=== PATIENT | male | born 1940 | race Caucasian/White ===

== ENCOUNTER → 2016-05-29 | Outpatient (CLI) | payer MEDICARE, OTHER | END | disposition home or self-care (01) | LOC: Rad HDHVI 07:56 | PROVIDERS: ATTEND Internal Medicine Cardiovascular Disease | DX: I25.5 Ischemic cardiomyopathy (principal); I35.0 Nonrheumatic aortic (valve) stenosis; I10 Essential (primary) hypertension; E78.00 Pure hypercholesterolemia, unspecified; J06.9 Acute upper respiratory infection, unspecified | CPT/HCPCS: 93306 ==

== ENCOUNTER → 2016-06-01 | Outpatient (CLI) | payer MEDICARE, OTHER ==
[~2016-06-01] VITALS: Ht 177.8 cm; Wt 67.1 kg
== END ==
LOC: Rad HDHVI 09:56
PROVIDERS: ATTEND Internal Medicine Cardiovascular Disease
DX: I10 Essential (primary) hypertension (principal); I25.2 Old myocardial infarction; E78.00 Pure hypercholesterolemia, unspecified; I25.10 Atherosclerotic heart disease of native coronary artery without angina pectoris; J06.9 Acute upper respiratory infection, unspecified; Z82.49 Family history of ischemic heart disease and other diseases of the circulatory system
CPT/HCPCS: 78452; 93017; 96374; A9500

== ENCOUNTER → 2016-10-15 | Outpatient (CLI) | payer MEDICARE, OTHER ==
[~2016-10-15] VITALS: Ht 177.8 cm; Wt 64.0 kg
[~2016-10-15] MED LIST: ASPI81CH49 PO; SIMV-13 PO
[2016-10-15 11:05] VITALS: BP 123/68
[2016-10-15 11:25] VITALS: BP 126/70
== END | disposition home or self-care (01) ==
LOC: LAB 11:33
PROVIDERS: ATTEND Internal Medicine Cardiovascular Disease
DX: Z01.818 Encounter for other preprocedural examination (principal); I71.4 Abdominal aortic aneurysm, without rupture
CPT/HCPCS: 93005; G0463

== ENCOUNTER → 2017-02-06 | Outpatient (CLI) | payer MEDICARE, OTHER ==
[~2017-02-06] MED LIST changes: +IOHEXOL 350 MG/ML 100ML IJ ONE; +READI-CAT 2 (BARIUM SULF)(VANILLA SMOOTHIE) 450ML ONE
[2017-02-06 15:00] VITALS: BP 119/79
[2017-02-06 15:45] VITALS: BP 134/72
== END | disposition home or self-care (01) ==
LOC: Rad HDHVI 14:56
PROVIDERS: ATTEND Internal Medicine Cardiovascular Disease
DX: J43.9 Emphysema, unspecified (principal); M48.54XA Collapsed vertebra, not elsewhere classified, thoracic region, initial encounter for fracture; M48.56XA Collapsed vertebra, not elsewhere classified, lumbar region, initial encounter for fracture; N40.0 Benign prostatic hyperplasia without lower urinary tract symptoms; N20.0 Calculus of kidney; Z85.46 Personal history of malignant neoplasm of prostate; X58.XXXA Exposure to other specified factors, initial encounter; Y93.89 Activity, other specified; Y92.89 Other specified places as the place of occurrence of the external cause; Y99.8 Other external cause status
CPT/HCPCS: 71260; 74177; 82565; 96374; Q9967

== ENCOUNTER → 2017-11-25 | Outpatient (CLI) | payer MEDICARE, OTHER ==
[~2017-11-25] MED LIST changes: -READI-CAT 2 (BARIUM SULF)(VANILLA SMOOTHIE) 450ML ONE
[2017-11-25 11:00] VITALS: BP 116/70
[2017-11-25 11:40] VITALS: BP 124/70
== END | disposition home or self-care (01) ==
LOC: Rad HDHVI 10:55
PROVIDERS: ATTEND Internal Medicine Cardiovascular Disease
DX: C61 Malignant neoplasm of prostate (principal); I10 Essential (primary) hypertension; E11.9 Type 2 diabetes mellitus without complications; M79.7 Fibromyalgia; D64.9 Anemia, unspecified; R53.83 Other fatigue; R52 Pain, unspecified
CPT/HCPCS: 74177; 82565; G0463; Q9967

== ENCOUNTER → 2017-12-02 | Outpatient (CLI) | payer MEDICARE, OTHER ==
[~2017-12-02] MED LIST changes: -IOHEXOL 350 MG/ML 100ML IJ ONE
== END | disposition home or self-care (01) ==
LOC: Rad HDHVI 12:52
PROVIDERS: ATTEND Internal Medicine Cardiovascular Disease
DX: I20.0 Unstable angina (principal)
CPT/HCPCS: 93306

== ENCOUNTER → 2017-12-03 | Outpatient (CLI) | payer MEDICARE, OTHER ==
[~2017-12-03] VITALS: Ht 177.8 cm; Wt 61.7 kg
[2017-12-03 12:18] LABS: Urine Blood Negative /uL (Negative); Urine Specific Gravity 1.015 (1.001-1.035)
[2017-12-03 12:21] LABS: Basophils # (auto) 0 uL; Basophils % (auto) 0.6 % (0.0-2.0); Eosinophils # (auto) 0.1 uL; Hematocrit 46.8 % (41.0-53.0); Hemoglobin 15.6 g/dL (13.5-17.5); Lymphocytes # (auto) 1.2 uL; Lymphocytes % (auto) 22.9 % (10.0-50.0); Mean Corpuscular Hgb Conc. 33.3 g/dL (32.0-36.0); Mean Corpuscular Volume 96.2 fL (80.0-100.0); Monocytes # (auto) 0.4 uL; Monocytes % (auto) 6.9 % (0.0-12.0); Neutrophils # (auto) 3.6 uL; Neutrophils % (auto) 67.6 % (37.0-80.0); Nucleated Red Blood Cells % 0.1 %; Platelet Count (auto) 202 10^3/uL (140-450); Red Blood Cells 4.86 10^6/uL (4.5-5.90); White Blood Cell 5.4 10^3/uL (4.4-10.8)
[2017-12-03 12:36] LABS: Free T4 (Free Thyroxine) 1.12 ng/dL (0.89-1.76); Prostate Specific Antigen 0.95 ng/mL (0.0-4.0)
[2017-12-03 12:46] LABS: Albumin 3.7 g/dL (3.4-5.0); BUN/Creatinine Ratio 20.9; Bilirubin, Total 0.8 mg/dL (0.2-1.0); Calcium 8.9 mg/dL (8.5-10.1); Potassium 4.4 mmol/L (3.5-5.1); Total Protein 7.8 g/dL (6.4-8.2)
== END | disposition home or self-care (01) ==
LOC: Rad HDHVI 08:00
PROVIDERS: ATTEND Internal Medicine Cardiovascular Disease
DX: Z00.01 Encounter for general adult medical examination with abnormal findings (principal); E03.9 Hypothyroidism, unspecified; E55.9 Vitamin D deficiency, unspecified; E11.9 Type 2 diabetes mellitus without complications; C61 Malignant neoplasm of prostate; D51.9 Vitamin B12 deficiency anemia, unspecified; N39.0 Urinary tract infection, site not specified; I20.0 Unstable angina; I71.4 Abdominal aortic aneurysm, without rupture; E78.2 Mixed hyperlipidemia; R64 Cachexia
CPT/HCPCS: 36415; 78452; 80053; 80061; 81003; 82306; 82607; 83036; 84153; 84403; 84439; 84443; 85025; 93017; 96374; A9500

== ENCOUNTER → 2018-03-26 | Outpatient (CLI) | payer MEDICARE, OTHER | END | disposition home or self-care (01) | LOC: Rad HDHVI 10:14 | PROVIDERS: ATTEND Internal Medicine Cardiovascular Disease | DX: J40 Bronchitis, not specified as acute or chronic (principal) | CPT/HCPCS: 71046 ==

== ENCOUNTER → 2018-07-04 | Outpatient (CLI) | payer MEDICARE, OTHER ==
[~2018-07-04] MED LIST changes: +IOHEXOL 350 MG/ML 100ML IJ ONE; +READI-CAT 2 (BARIUM SULF)(VANILLA SMOOTHIE) 450ML ONE
[2018-07-04 08:17] VITALS: BP 135/75
--- NOTE | 2018-07-04 08:20 | NUR ---
IV insertion IV access obtained, via clean sterile technique by inserting 20 gauge catheter at LAC after 1 attempt(s). IV secured properly. No trauma to site. Patient tolerated procedure well.
--- NOTE | 2018-07-04 08:30 | NUR ---
LABS DRAWN, CREAT SENT TO LAB FOR STAT RESULTS
--- NOTE | 2018-07-04 09:30 | NUR ---
PT. TO AND FROM CT. TOLERATED PROCEDURE WELL, WITH NO C/O.
[2018-07-04 09:45] VITALS: BP 127/64
--- NOTE | 2018-07-04 09:45 | NUR ---
IV removal IV DC'd with sterile technique, catheter fully intact. Pressure dressing applied to site. Patient tolerated procedure well. Discharged with aftercare instructions per MD. NOTE: PT. INSTRUCTED TO INCREASE WATER INTAKE FOR NEXT 24 HRS.
[2018-07-04 12:19] LABS: Basophils # (auto) 0.1 uL; Basophils % (auto) 1.7 % (0.0-2.0); Eosinophils # (auto) 0.1 uL; Eosinophils % (auto) 1.7 % (0.0-7.0); Hematocrit 47.6 % (41.0-53.0); Hemoglobin 15.7 g/dL (13.5-17.5); Lymphocytes % (auto) 16.9 % (10.0-50.0); Mean Corpuscular Hemoglobin 31.7 pg (28.0-32.0); Mean Corpuscular Hgb Conc. 32.9 g/dL (32.0-36.0); Mean Corpuscular Volume 96.3 fL (80.0-100.0); Monocytes # (auto) 0.5 uL; Monocytes % (auto) 8.2 % (0.0-12.0); Neutrophils # (auto) 4.1 uL; Neutrophils % (auto) 71.5 % (37.0-80.0); Nucleated Red Blood Cells % 0.2 %; Platelet Count (auto) 178 10^3/uL (140-450); Red Blood Cells 4.94 10^6/uL (4.5-5.90); Red Cell Distribution Width 13.2 % (11.8-14.3); White Blood Cell 5.7 10^3/uL (4.4-10.8)
[2018-07-04 12:30] LABS: BUN/Creatinine Ratio 22.5; Calcium 8.8 mg/dL (8.5-10.1); Potassium 3.8 mmol/L (3.5-5.1)
[2018-07-04 15:49] LABS: Urine Blood Negative /uL (Negative); Urine Specific Gravity 1.018 (1.001-1.035)
[2018-07-07 14:11] LABS: Prostate Specific Antigen 0.58 ng/mL (0.0-4.0)
== END | disposition home or self-care (01) ==
LOC: Rad HDHVI 08:00
PROVIDERS: ATTEND Internal Medicine Cardiovascular Disease
DX: N39.0 Urinary tract infection, site not specified (principal); R94.4 Abnormal results of kidney function studies; R63.4 Abnormal weight loss; N20.0 Calculus of kidney; I71.4 Abdominal aortic aneurysm, without rupture; M85.88 Other specified disorders of bone density and structure, other site; J43.9 Emphysema, unspecified; C61 Malignant neoplasm of prostate; E03.9 Hypothyroidism, unspecified; E55.9 Vitamin D deficiency, unspecified; E29.1 Testicular hypofunction; E11.9 Type 2 diabetes mellitus without complications; D51.9 Vitamin B12 deficiency anemia, unspecified; Z79.899 Other long term (current) drug therapy
CPT/HCPCS: 36415; 74177; 80048; 80061; 81003; 82306; 82565; 82607; 83036; 84153; 84403; 84443; 85025; G0463; Q9967

== ENCOUNTER → 2018-08-05 | Outpatient (CLI) | payer MEDICARE, OTHER ==
[~2018-08-05] MED LIST changes: -READI-CAT 2 (BARIUM SULF)(VANILLA SMOOTHIE) 450ML ONE
[2018-08-05 08:40] VITALS: BP_SYST 111; BP_SYST 125; BP_DIAS 61; BP_DIAS 68
--- NOTE | 2018-08-05 10:43 | NUR ---
IN FOR CT HEAD WITH IV CONTRAST TO R/O CVA. IV insertion IV access obtained, via clean sterile technique by inserting 20 gauge catheter at [RIGHT AC after [2] attempt(s). IV secured properly. No trauma to site. Patient tolerated procedure well. LABS DRAWN AND SENT FOR STAT RESULT AT 0853. CREATININE RETURNED AT 0.[address] SCAN COMPLETED AND TOLERATED WELL. IV SITE DCD POST CT SCAN AND SITE BENIGN. DISCHARGED TO SELF CARE WITHOUT DISTRESS AND WITHOUT DISCOMFORT.
== END | disposition home or self-care (01) ==
LOC: Rad HDHVI 08:34
PROVIDERS: ATTEND Internal Medicine Cardiovascular Disease
DX: I63.9 Cerebral infarction, unspecified (principal); E03.9 Hypothyroidism, unspecified; R94.4 Abnormal results of kidney function studies; R42 Dizziness and giddiness; G31.9 Degenerative disease of nervous system, unspecified
CPT/HCPCS: 36415; 70470; 82565; 84439; 84443; G0463; Q9967

== ENCOUNTER → 2018-08-12 | Outpatient (CLI) | payer MEDICARE, OTHER ==
[~2018-08-12] MED LIST changes: -IOHEXOL 350 MG/ML 100ML IJ ONE
== END | disposition home or self-care (01) ==
LOC: Rad HDHVI 12:56
PROVIDERS: ATTEND Internal Medicine Cardiovascular Disease
DX: I10 Essential (primary) hypertension (principal); R42 Dizziness and giddiness; E78.5 Hyperlipidemia, unspecified
CPT/HCPCS: 93306; 93880

== ENCOUNTER → 2019-10-13 | Outpatient (CLI) | payer MEDICARE, OTHER ==
[2019-10-13 12:13] LABS: Basophils # (auto) 0.1 10 ^3/uL (0-0.2); Eosinophils # (auto) 0.1 10 ^3/uL (0-0.8); Eosinophils % (auto) 1.7 % (0.0-7.0); Hematocrit 48.4 % (41.0-53.0); Hemoglobin 15.8 g/dL (13.5-17.5); Lymphocytes # (auto) 1.3 10 ^3/uL (0.4-5.4); Lymphocytes % (auto) 22.9 % (10.0-50.0); Mean Corpuscular Hemoglobin 31.5 pg (28.0-32.0); Mean Corpuscular Hgb Conc. 32.6 g/dL (32.0-36.0); Mean Corpuscular Volume 96.4 fL (80.0-100.0); Monocytes # (auto) 0.5 10 ^3/uL (0-1.3); Monocytes % (auto) 8.6 % (0.0-12.0); Neutrophils # (auto) 3.8 10 ^3/uL (1.6-8.6); Neutrophils % (auto) 65.8 % (37.0-80.0); Platelet Count (auto) 178 10^3/uL (140-450); Red Blood Cells 5.02 10^6/uL (4.5-5.90); White Blood Cell 5.7 10^3/uL (4.4-10.8)
[2019-10-13 12:20] LABS: Potassium 4.1 mmol/L (3.5-5.1)
[2019-10-13 12:27] LABS: Free T4 (Free Thyroxine) 1.13 ng/dL (0.89-1.76); Prostate Specific Antigen 0.13 ng/mL (0.0-4.0)
[2019-10-13 12:33] LABS: Albumin 3.8 g/dL (3.4-5.0); BUN/Creatinine Ratio 14.3; Bilirubin, Total 0.5 mg/dL (0.2-1.0); Calcium 9.1 mg/dL (8.5-10.1)
== END | disposition home or self-care (01) ==
LOC: LAB 08:21
PROVIDERS: ATTEND Internal Medicine Cardiovascular Disease
DX: C61 Malignant neoplasm of prostate (principal); E03.9 Hypothyroidism, unspecified; K90.9 Intestinal malabsorption, unspecified; E29.1 Testicular hypofunction; N39.0 Urinary tract infection, site not specified; D51.9 Vitamin B12 deficiency anemia, unspecified; Z00.00 Encounter for general adult medical examination without abnormal findings; Z79.899 Other long term (current) drug therapy
CPT/HCPCS: 36415; 80053; 80061; 82306; 82607; 83036; 84153; 84403; 84439; 84443; 85025

== ENCOUNTER → 2019-10-20 | Outpatient (CLI) | payer MEDICARE, OTHER | END | disposition home or self-care (01) | LOC: Rad HDHVI 08:11 | PROVIDERS: ATTEND Internal Medicine Cardiovascular Disease | DX: I50.33 Acute on chronic diastolic (congestive) heart failure (principal); R07.89 Other chest pain; R06.02 Shortness of breath | CPT/HCPCS: 93306 ==

== ENCOUNTER → 2019-11-02 | Outpatient (CLI) | payer MEDICARE, OTHER ==
[~2019-11-02] VITALS: Ht 177.8 cm; Wt 61.2 kg
== END | disposition home or self-care (01) ==
LOC: Rad HDHVI 08:32
PROVIDERS: ATTEND Internal Medicine Cardiovascular Disease
DX: I10 Essential (primary) hypertension (principal); E78.00 Pure hypercholesterolemia, unspecified; F17.210 Nicotine dependence, cigarettes, uncomplicated; I25.2 Old myocardial infarction
CPT/HCPCS: 78452; 93017; 96374; A9500

== ENCOUNTER → 2020-02-10 | Outpatient (CLI) | payer MEDICARE, OTHER | END | disposition home or self-care (01) | LOC: Rad HDHVI 11:15 | PROVIDERS: ATTEND Internal Medicine Cardiovascular Disease | DX: M81.0 Age-related osteoporosis without current pathological fracture (principal); I70.0 Atherosclerosis of aorta; M85.80 Other specified disorders of bone density and structure, unspecified site; Z98.890 Other specified postprocedural states | CPT/HCPCS: 71111 ==

== ENCOUNTER → 2020-05-23 | Outpatient (CLI) | payer MEDICARE, OTHER ==
[2020-05-23 16:37] LABS: Basophils # (auto) 0 10 ^3/uL (0-0.2); Basophils % (auto) 0.8 % (0.0-2.0); Eosinophils # (auto) 0.1 10 ^3/uL (0-0.8); Eosinophils % (auto) 1.4 % (0.0-7.0); Hematocrit 43.6 % (41.0-53.0); Hemoglobin 14.7 g/dL (13.5-17.5); Lymphocytes % (auto) 17.6 % (10.0-50.0); Mean Corpuscular Hemoglobin 32.4 pg (28.0-32.0); Mean Corpuscular Hgb Conc. 33.6 g/dL (32.0-36.0); Mean Corpuscular Volume 96.4 fL (80.0-100.0); Monocytes # (auto) 0.5 10 ^3/uL (0-1.3); Monocytes % (auto) 9.6 % (0.0-12.0); Neutrophils # (auto) 3.9 10 ^3/uL (1.6-8.6); Neutrophils % (auto) 70.6 % (37.0-80.0); Nucleated Red Blood Cells % 0.1 %; Platelet Count (auto) 158 10^3/uL (140-450); Red Blood Cells 4.52 10^6/uL (4.5-5.90); Red Cell Distribution Width 13.2 % (11.8-14.3); White Blood Cell 5.5 10^3/uL (4.4-10.8)
[2020-05-23 16:40] LABS: Urine Blood Negative /uL (Negative); Urine Specific Gravity 1.018 (1.001-1.035)
[2020-05-23 16:50] LABS: Albumin 3.6 g/dL (3.4-5.0); Anion Gap 4 (5-15); Blood Urea Nitrogen 17 mg/dL (7-18); Calcium 9.2 mg/dL (8.5-10.1); Carbon Dioxide 33 mmol/L (21-32); Chloride 105 mmol/L (98-107); Potassium 5.4 mmol/L (3.5-5.1); Sodium 142 mmol/L (136-145)
[2020-05-23 16:56] LABS: Alanine Aminotransferase 29 U/L (16-61); Alkaline Phosphatase 76 U/L (45-117); Aspartate Aminotransferase 20 U/L (15-37); BUN/Creatinine Ratio 19.8; Bilirubin, Direct < 0.1 mg/dL (0-0.2); Bilirubin, Total 0.4 mg/dL (0.2-1.0); Cholesterol 148 mg/dL (< 200); GFR African American 110 mL/min; GFR Non-African American 91 mL/min; Glucose 96 mg/dL (74-106); HDL Cholesterol 46 mg/dL (40-59); LDL Cholesterol 80 mg/dL (< 100); Total Protein 7.4 g/dL (6.4-8.2); Triglycerides 200 mg/dL (< 150)
== END | disposition home or self-care (01) ==
LOC: CHF HDHVI 11:11
PROVIDERS: ATTEND Internal Medicine Cardiovascular Disease
DX: C61 Malignant neoplasm of prostate (principal); D51.3 Other dietary vitamin B12 deficiency anemia; E11.9 Type 2 diabetes mellitus without complications; E55.9 Vitamin D deficiency, unspecified; I10 Essential (primary) hypertension; D64.9 Anemia, unspecified; R53.1 Weakness; R00.2 Palpitations; R30.0 Dysuria
CPT/HCPCS: 36415; 80048; 80061; 80076; 81003; 82306; 83036; 84153; 84403; 84443; 85025

== ENCOUNTER → 2020-09-12 | Outpatient (CLI) | payer MEDICARE, OTHER ==
[2020-09-12 13:59] LABS: Urine Blood Negative /uL (Negative); Urine Specific Gravity 1.018 (1.001-1.035)
[2020-09-12 14:07] LABS: BUN/Creatinine Ratio 28.6; Calcium 8.3 mg/dL (8.5-10.1); Potassium 4.6 mmol/L (3.5-5.1)
[2020-09-12 14:11] LABS: Basophils # (auto) 0 10 ^3/uL (0-0.2); Basophils % (auto) 0.6 % (0.0-2.0); Eosinophils # (auto) 0.1 10 ^3/uL (0-0.8); Eosinophils % (auto) 1.7 % (0.0-7.0); Hematocrit 44.9 % (41.0-53.0); Lymphocytes # (auto) 0.8 10 ^3/uL (0.4-5.4); Mean Corpuscular Hemoglobin 32.3 pg (28.0-32.0); Mean Corpuscular Hgb Conc. 33.4 g/dL (32.0-36.0); Mean Corpuscular Volume 96.8 fL (80.0-100.0); Monocytes # (auto) 0.5 10 ^3/uL (0-1.3); Monocytes % (auto) 9.1 % (0.0-12.0); Neutrophils % (auto) 73.6 % (37.0-80.0); Red Blood Cells 4.64 10^6/uL (4.5-5.90); Red Cell Distribution Width 13.7 % (11.8-14.3); White Blood Cell 5.4 10^3/uL (4.4-10.8)
== END | disposition home or self-care (01) ==
LOC: LAB 11:27
PROVIDERS: ATTEND Internal Medicine Cardiovascular Disease
DX: I10 Essential (primary) hypertension (principal); D64.9 Anemia, unspecified; N39.0 Urinary tract infection, site not specified
CPT/HCPCS: 36415; 80048; 81003; 85025

== ENCOUNTER → 2022-01-10 | Outpatient (CLI) | payer MEDICARE, OTHER | END | disposition home or self-care (01) | LOC: Rad HDHVI 10:15 | PROVIDERS: ATTEND Internal Medicine Cardiovascular Disease | DX: R94.4 Abnormal results of kidney function studies (principal); R06.02 Shortness of breath | CPT/HCPCS: 36415; 71046; 82565; 84520 ==

== ENCOUNTER → 2022-01-11 | Outpatient (CLI) | payer MEDICARE, OTHER ==
[~2022-01-11] MED LIST changes: +IOHEXOL 350 MG/ML 100ML IJ ONE
[2022-01-11 09:10] VITALS: BP 129/72
[2022-01-11 09:32] VITALS: BP 143/66
== END | disposition home or self-care (01) ==
LOC: Rad HDHVI 09:02
PROVIDERS: ATTEND Internal Medicine Cardiovascular Disease
DX: I71.40 Abdominal aortic aneurysm, without rupture, unspecified (principal); N20.0 Calculus of kidney; N28.1 Cyst of kidney, acquired; I72.3 Aneurysm of iliac artery; M47.816 Spondylosis without myelopathy or radiculopathy, lumbar region; R63.4 Abnormal weight loss; R06.02 Shortness of breath; R10.9 Unspecified abdominal pain
CPT/HCPCS: 74177; G0463; Q9967

== ENCOUNTER → 2022-01-22 | Outpatient (CLI) | payer MEDICARE, OTHER ==
[~2022-01-22] MED LIST changes: -IOHEXOL 350 MG/ML 100ML IJ ONE
== END | disposition home or self-care (01) ==
LOC: Rad HDHVI 13:51
PROVIDERS: ATTEND Internal Medicine Cardiovascular Disease
DX: I08.3 Combined rheumatic disorders of mitral, aortic and tricuspid valves (principal); R00.2 Palpitations; R07.89 Other chest pain; I71.9 Aortic aneurysm of unspecified site, without rupture
CPT/HCPCS: 93306

== ENCOUNTER → 2022-02-05 | Outpatient (CLI) | payer MEDICARE, OTHER ==
[~2022-02-05] VITALS: Ht 177.8 cm; Wt 61.2 kg
[~2022-02-05] MED LIST changes: +ADENOSINE 51 MG in GIVE UN-DILUTED 0 ML IV ONE; +ADENOSINE 90 MG/30 ML INJ IV ONE
== END | disposition home or self-care (01) ==
LOC: Rad HDHVI 08:33
PROVIDERS: ATTEND Internal Medicine Cardiovascular Disease
DX: I25.10 Atherosclerotic heart disease of native coronary artery without angina pectoris (principal); R42 Dizziness and giddiness; R07.9 Chest pain, unspecified; R00.2 Palpitations; I25.2 Old myocardial infarction; E78.5 Hyperlipidemia, unspecified; Z87.891 Personal history of nicotine dependence; Z79.899 Other long term (current) drug therapy; Z82.49 Family history of ischemic heart disease and other diseases of the circulatory system; Z86.73 Personal history of transient ischemic attack (TIA), and cerebral infarction without residual deficits
CPT/HCPCS: 78452; 93005; 96374; 96375; A9500; J0153

== ENCOUNTER → 2022-12-07 | Outpatient (CLI) | payer MEDICARE, OTHER ==
[~2022-12-07] VITALS: Ht 177.8 cm; Wt 64.0 kg
[~2022-12-07] MED LIST changes: -ADENOSINE 51 MG in GIVE UN-DILUTED 0 ML IV ONE; +ADENOSINE 54 MG in GIVE UN-DILUTED 0 ML IV ONE; -SIMV-13 PO; +SIMV40TA18 PO
== END | disposition home or self-care (01) ==
LOC: Rad HDHVI 08:40
PROVIDERS: ATTEND Internal Medicine Cardiovascular Disease
DX: I11.0 Hypertensive heart disease with heart failure (principal); I50.43 Acute on chronic combined systolic (congestive) and diastolic (congestive) heart failure; I25.10 Atherosclerotic heart disease of native coronary artery without angina pectoris; I25.2 Old myocardial infarction; R06.02 Shortness of breath; E78.5 Hyperlipidemia, unspecified; F17.210 Nicotine dependence, cigarettes, uncomplicated; Z82.49 Family history of ischemic heart disease and other diseases of the circulatory system
CPT/HCPCS: 78452; 93005; 96374; 96375; A9500; J0153

== ENCOUNTER → 2022-12-24 | Outpatient (CLI) | payer MEDICARE, OTHER ==
[~2022-12-24] MED LIST changes: -ADENOSINE 54 MG in GIVE UN-DILUTED 0 ML IV ONE; -ADENOSINE 90 MG/30 ML INJ IV ONE
== END | disposition home or self-care (01) ==
LOC: Rad HDHVI 14:49
PROVIDERS: ATTEND Internal Medicine Cardiovascular Disease
DX: I10 Essential (primary) hypertension (principal)
CPT/HCPCS: 93880